=== PATIENT | male | born 1950 | race Caucasian/White ===

== ENCOUNTER → 2020-09-29 09:54 | Outpatient (CLI) | payer OTHER | END | disposition home or self-care (01) | LOC: LAB 09:54 | PROVIDERS: ATTEND Urology | DX: R97.20 Elevated prostate specific antigen [PSA] (principal) ==

== ENCOUNTER 2020-11-04 07:10 | Outpatient (CLI) | payer OTHER | END 2020-11-04 07:14 | disposition home or self-care (01) | LOC: SONOGRAMA 07:10 | PROVIDERS: ATTEND Urology | DX: D29.1 Benign neoplasm of prostate (principal); R97.20 Elevated prostate specific antigen [PSA] ==

== ENCOUNTER 2022-11-15 12:42 | Outpatient (CLI) | payer OTHER | END 2022-11-15 12:47 | disposition home or self-care (01) | LOC: LAB 12:42 | PROVIDERS: ATTEND Urology | DX: R97.20 Elevated prostate specific antigen [PSA] (principal) ==